=== PATIENT | male | born 1970 | race Caucasian/White ===

== ENCOUNTER 2024-11-10 06:01 | Day surgery (SDC) | payer BC, SELFPAY ==
[2024-10-27 14:01] VITALS: BMI 29.6
[2024-11-10] VITALS (11 sets, daily range): BP systolic 139–173; BP diastolic 84–96; BMI 29.6
[2024-11-10] MEDS: TYLENOL 1000 MG PO (06:30)
[2024-11-10] MEDS: HEPARIN 5000 UNITS SC (06:31)
[2024-11-10] MEDS: NORMOSOL-R/PLASMALYTE-A 1000 IV (06:31)
--- NOTE | 2024-11-10 08:41 | W.IMMPOSTOP ---
Surgical Immed Post Op Note
-
Primary Surgeon: Aneta
Assisting: Mian MARTIN
Pre-op Diagnosis: Umbilical hernia, incarcerated
Post-op Diagnosis: Same
Procedure Performed: Robotic repair of incarcerated umbilical hernia (rTAPP) [Size: 5cm]
Anesthesia Type: GETA + TAP block
Specimen / Cultures: None
Estimated Blood Loss: 10cc
Complications: None immediate
Operative Findings: Umbilical defect and 2 epigastric defects encompassing a area 5cm x 2cm with incarcerated fat. 12cm x 12cm bard soft mesh
--- NOTE | 2024-11-10 08:42 | OR.RPT ---
Operative Report
Operative Report
Primary Surgeon: Aneta
Assisting: Mian MARTIN
Pre-op Diagnosis: Umbilical hernia, incarcerated
Post-op Diagnosis: Same
Procedure Performed: Robotic repair of incarcerated umbilical hernia (rTAPP) [Size: 5cm]
Anesthesia Type: GETA + TAP block
Specimen / Cultures: None
Estimated Blood Loss: 10cc
Complications: None immediate
Date of surgery: 11/10/24
Operative Findings: Umbilical defect and 2 epigastric defects encompassing a area 5cm x 2cm with incarcerated fat. 12cm x 12cm bard soft mesh
Indications:� This 54M developed a symptomatic incarcerated umbilical hernia. Robot assisted laparoscopic repair was planned.
Description of procedure:� The patient was taken to the operating room and positioned into supine position. The patient�s abdomen was prepped and draped in standard sterile fashion. A time-out was completed verifying correct patient, procedure,
site, positioning, and implants and special equipment prior to beginning this procedure.� The hernia was unable to be manually reduced after induction. A stab incision was made in the left upper quadrant, a Veress needle was inserted and proper
position was confirmed by aspiration and saline drop test. Following this, pneumoperitoneum was created with insufflation of carbon dioxide to 12 mmHg. Then a 8mm robotic trocar was inserted at the left anterior axillary line at the level of the
umbilicus. The laparoscope was inserted and no injuries were identified in the area. Under direct visualization, the initial trocar was exposed and two 8mm trocars were placed a hand's breadth above and below the initial trocar under direct
visualization.
Attention was turned to the umbilical defect. The peritoneum was incised several cm superior to the defect and a peritoneal flap was developed in transverse and caudad directions using blunt and sharp dissection and judicious electrocautery. The
defects were identified and measured as above. Incarcerated fatty contents were reduced from all defects. The defects were closed with 0 PDS stratafix suture. A 12cm x 12cm bard soft mesh was passed into the abdomen. It was placed against the
underside of the abdominal wall and secured in place with 2-0 vicryl sutures at all four corners. The flap was closed over the mesh and secured with 2-0 monocryl stratafix suture. A 14g angiocath was used to decompress the preperitoneal space. The
flap sealed and suctioned nicely up to the abdominal wall. The mesh did not fold nor curl. A transversus abdominis plane block was then performed under laparoscopic vision with marcaine/decadron.
After ensuring adequate hemostasis, the trocars were removed and the pneumoperitoneum allowed to escape. The trocar incisions were closed at the skin level using 4-0 monocryl and topical skin adhesive. All counts were correct. The patient tolerated
the procedure well and was taken to the postanesthesia care unit in stable condition.
The assistance of Mian MARTIN was required due to the complexity of the procedure. During the procedure she assisted with retraction, resection, block and closure of the wound.
== END 2024-11-10 11:03 | disposition home or self-care (01) ==
LOC: SDS 06:01
PROVIDERS: ATTENDING PHYSICIAN Surgery; FAMILY PHYSICIAN Family Medicine
DX: K42.0 Umbilical hernia with obstruction, without gangrene (principal)
CPT/HCPCS: 49594; 36415; 93005; C1781